=== PATIENT | female | born 1985 ===

== ENCOUNTER 2018-07-17 13:59 | Emergency (ER) | payer OTHER, MEDICAID ==
[2018-07-17 14:44] VITALS: BP 102/69
--- NOTE | 2018-07-17 14:59 | UC ---
General HPI - HPI Summary HPI Summary: 33 yo female presents with cough for the last 2 days. She tells me that she is 38 weeks and is scheduled to be induced later next week. Her 2yo son was recently dx'd with RSV and she is concerned she may have this as well. She has been taking sudafed with mild relief. Denies fever, chills, sinus symptoms, SOB, chest pain, vaginal bleeding. - History of Current Complaint Chief Complaint: UCGeneralIllness Stated Complaint: TESTING FOR RSV Time Seen by Provider: 07/17/18 14:59 Hx Obtained From: Patient Hx Last Menstrual Period: 9 months ago Onset/Duration: Sudden Onset Pain Intensity: 0 - Allergy/Home Medications Allergies/Adverse Reactions: Allergies Allergy/AdvReac Type Severity Reaction Status Date / Time doxycycline AdvReac Severe Nausea And Verified 07/17/18 14:44 Vomiting Home Medications: Home Medications Acetaminophen [Tylenol] 2 tab PO ONCE PRN 07/17/18 [History Confirmed 07/17/18] Vit37/Iron/Folic Acid [Prenata] 1 chw PO DAILY 07/17/18 [History Confirmed 07/17/18] Pseudoephedrine HCl [Sudafed] 30 mg PO 07/17/18 [History] PMH/Surg Hx/FS Hx/Imm Hx - Additional Past Medical History Additional PMH: None - Surgical History Surgical History: None - Family History Known Family History: Positive: None - Social History Occupation: Employed Full-time Lives: With Family Alcohol Use: None Substance Use Type: None Smoking Status (MU): Never Smoked Tobacco Review of Systems All Other Systems Reviewed And Are Negative: Yes Constitutional: Positive: Negative Skin: Positive: Negative Eyes: Positive: Negative ENT: Positive: Negative Respiratory: Positive: Cough Cardiovascular: Positive: Negative Gastrointestinal: Positive: Negative Genitourinary: Positive: Negative Neurological: Positive: Negative Psychological: Positive: Negative Physical Exam - Summary Physical Exam Summary: GENERAL: NAD. WDWN. No pain distress. SKIN: No rashes, sores, lesions, or open wounds. HEENT: Head: AT/NC Eyes: EOM intact. Conjunctiva clear without inflammation or discharge. Ears: Hearing grossly normal. TMs intact, no bulging, erythema, or edema. Nose: Nasal mucosa pink and moist. NTTP maxillary and frontal sinus. Throat: Posterior oropharynx without exudates, erythema, or tonsillar enlargement. Uvula midline. NECK: Supple. Nontender. No lymphadenopathy. CHEST: CTAB. No r/r/w. No accessory muscle use. Breathing comfortably and in no distress. CV: RRR. Without m/r/g. Pulses intact. Cap refill <2seconds NEURO: Alert. PSYCH: Age appropriate behavior. Triage Information Reviewed: Yes Vital Signs: Initial Vital Signs Temp 98.3 F 07/17/18 14:40 Pulse 72 07/17/18 14:40 Resp 14 07/17/18 14:40 BP 102/69 07/17/18 14:40 Pulse Ox 100 07/17/18 14:40 Laboratory Tests 07/17/18 15:12 RSV Rapid Positive H Vital Signs Reviewed: Yes Course/Dx - Course Course Of Treatment: RSV positive. I spoke to Dr. Vernon of [facility] and discussed case with him. Treatment remains to be supportive care and does not change pt's plan for induction later next week unless symptoms change. Discussed this with pt and advised her to f/u with [facility] as scheduled. - Diagnoses Provider Diagnosis: RSV (acute bronchiolitis due to respiratory syncytial virus) Discharge - Sign-Out/Discharge Documenting (check all that apply): Patient Departure All imaging exams completed and their final reports reviewed: No Studies - Discharge Plan Condition: Stable Disposition: HOME Patient Education Materials: Acute Cough (ED) Referrals: No Primary Care Phys,NOPCP [Primary Care Provider] - Additional Instructions: If you develop a fever, shortness of breath, chest pain, new or worsening symptoms - please call your PCP or go to the ED. - Billing Disposition and Condition Condition: STABLE Disposition: Home
== END 2018-07-17 15:40 | disposition home or self-care (01) ==
LOC: UCEAST 13:59
DX: O26.893 Other specified pregnancy related conditions, third trimester (principal); B97.4 Respiratory syncytial virus as the cause of diseases classified elsewhere; Z3A.38 38 weeks gestation of pregnancy; Z88.1 Allergy status to other antibiotic agents
CPT/HCPCS: 99211; G0463

== ENCOUNTER 2018-07-19 07:02 | Emergency (ER) | payer OTHER, MEDICAID ==
[2018-07-19 07:12] VITALS: BP 102/69
--- NOTE | 2018-07-19 07:25 | UC ---
Ear Complaint HPI - HPI Summary HPI Summary: Patient Chief Complaint: Left ear pain getting worse over the past 2 days. Patient is 38 weeks and tested positive for RSV. Her son also has a ear infection. The pain is mild to moderate. MD note: vital signs stable. Nurses Note Reviewed. "left ear pain x 1-2 days. tested positive for RSV 2 days ago" Visit History Reviewed. Noncontributory to present complaint. Medications & Allergies Reviewed. Allergic to doxycycline. - History of Current Complaint Chief Complaint: UCGeneralIllness Stated Complaint: EAR PAIN Time Seen by Provider: 07/19/18 07:18 Hx Last Menstrual Period: 9 months ago Pain Intensity: 3 - Allergies/Home Medications Allergies/Adverse Reactions: Allergies Allergy/AdvReac Type Severity Reaction Status Date / Time doxycycline AdvReac Severe Nausea And Verified 07/19/18 07:12 Vomiting Home Medications: Home Medications Ranitidine TAB (NF) [Zantac TAB (NF)] 300 mg PO DAILY 07/19/18 [History Confirmed 07/19/18] PMH/Surg Hx/FS Hx/Imm Hx - Additional Past Medical History Additional PMH: Patient's past medical history is unremarkable. She has no admissions for serious illness or surgery. Family history: Patient denies significant chronic illnesses in her family. Social history: This is the patient's second . She is a nonsmoker. - Surgical History Surgical History: None - Family History Known Family History: Positive: None - Social History Alcohol Use: None Substance Use Type: None Smoking Status (MU): Never Smoked Tobacco Review of Systems All Other Systems Reviewed And Are Negative: Yes ENT: Positive: Ear Ache - Left ear Respiratory: Positive: Cough Gastrointestinal: Positive: Negative Genitourinary: Positive: Negative Physical Exam - Summary Physical Exam Summary: Appearance: The patient is well-appearing, is in no pain or distress, and is well-nourished. Eyes: Conjunctiva are clear. Pupils are equal and reactive to light and accommodation. Extra ocular muscle movement is intact. ENT: The hearing is grossly normal, the pharynx is normal, and the TM on the right is normal. The left time is injected inferiorly. There is no muffled or hoarse voice. No stridor. Neck: The neck is supple and there is no lymphadenopathy. Respiratory: The chest is nontender to palpation and without crepitus. The lungs are clear, there are normal breath sounds, and there is no respiratory distress. No wheezes, rales or rhonchi. Cardiovascular: Heart sounds reveal a regular rate and rhythm. There are no clicks, rubs or murmurs. There are no carotid bruits or thrills. Circulation is grossly intact. Abdomen: The abdomen is soft and nontender. There is no organomegaly. Bowel sounds are present and within normal limits. No point tenderness at McBurneys point. Musculoskeletal: Strength is intact. The patient moves all extremities. Neurological: The patient is alert. Motor and sensory are examination grossly intact. Speech is normal. Psychological: The patient displays age appropriate behavior Skin: Negative for rashes. Vital Signs: Initial Vital Signs Temp 97.6 F 07/19/18 07:08 Pulse 73 07/19/18 07:08 Resp 14 07/19/18 07:08 BP 102/69 07/19/18 07:08 Pulse Ox 98 07/19/18 07:08 Ear Complaint Course/Dx - Course Course Of Treatment: This is a 33-year-old healthy female, 2, who is 38 weeks and tested positive for RSV, who now complains of 2 days of bothersome left ear pain. Examination shows a mildly injected. Left tympanic membrane in the inferior aspect. The remainder of her exam is unremarkable. She has no abdominal pain or signs of dehydration. She has some mild intermittent cough. Her lungs are clear. She is not short of breath. My diagnosis is left otitis media and I will start her on 5 days of amoxicillin. She is scheduled to be induced in 6 days and she knows to follow up for any increasing pain or temperature. - Differential Dx/Diagnosis Differential Diagnosis/HQI/PQRI: Mastoiditis, Otitis Externa, Otitis Media Provider Diagnosis: Otitis media Discharge - Sign-Out/Discharge Documenting (check all that apply): Patient Departure All imaging exams completed and their final reports reviewed: No Studies - Discharge Plan Condition: Stable Disposition: HOME Prescriptions: Amoxicillin PO (*) [Amoxicillin 875 MG (*)] 875 mg PO BID #10 tab MDD 2 Patient Education Materials: Ear Infection (ED), Warm Compress or Soak (ED) Referrals: No Primary Care Phys,NOPCP [Primary Care Provider] - Additional Instructions: WE DISCUSSED: your diagnosis is left ear infection. begin amoxicillin, twice a day for five days. hot tea, steam, warm water to area of sinuses and left ear will help drain fluid , and make you feel more comfortable. recheck at any time for increased pain or temperature. - Billing Disposition and Condition Condition: STABLE Disposition: Home
== END 2018-07-19 07:34 | disposition home or self-care (01) ==
LOC: UCEAST 07:02
DX: O99.89 Other specified diseases and conditions complicating pregnancy, childbirth and the puerperium (principal); H66.92 Otitis media, unspecified, left ear; R05 Cough; Z88.1 Allergy status to other antibiotic agents; Z3A.38 38 weeks gestation of pregnancy
CPT/HCPCS: 99212; G0463